=== PATIENT | male | born 1970 | race Caucasian/White ===

== ENCOUNTER 2025-05-07 08:19 | Emergency (ER) | payer OTHER, SELFPAY ==
[2025-05-07 08:27] VITALS: BP 138/79
[2025-05-07] MEDS: TYLENOL 1000 MG PO (08:55)
[2025-05-07 09:01] VITALS: BP 130/87
--- NOTE | 2025-05-07 09:09 | ED.GENMED ---
History of Present Illness
General
Chief Complaint: Chest Pain
Source: patient
Exam Limitations: none
Time Seen by Provider: 05/07/25 08:35
Nursing documentation reviewed up to this point in time: agreed with
History of Present Illness
History of Present Illness:
54 yr old male presents to the ER for evaluation of chest pain. Patient is currently residing at [facility] in [place] and was lifting weights. He was doing a chest press type exercise 2 days ago and since yesterday has had
anterior chest pain. Pain is worse with sneezing or taking a deep breath. He denies any shortness of breath. He has no cardiac history. He does smoke cigarettes. He did take 800 mg of ibuprofen at 7 AM this morning.
Phy Exam
General Physical Exam
General Presentation: no apparent distress
General age: appears stated age
General Skin: warm and dry
General Habitus: normal
General Mental: alert
General Hydration: appears well hydrated
Cardiovascular Exam
Cardiovascular Exam: regular rate/rhythm, no murmur and normal peripheral pulses
Pulmonary Exam
Pulmonary Exam: lungs clear, no respiratory distress and other (+ anterior chest wall tenderness )
Neurological Exam
Neurological Exam: alert and oriented x3
Musculoskeletal Exam
Musculoskeletal Exam: full ROM
Skin Exam
Skin Exam: normal color and warm/dry
Psychiatric Exam
Psychiatric Exam: normal mood/affect
Scores
Heart Score for Chest Pain Patients
STEMI patient?: Not applicable
Course
Orders/Labs/Results
Orders:
Orders
05/07/25
Electrocardiogram (*1) Stat
Comment: DONE
Electrocardiogram (*1) Stat
Comment: DONE
05/07/25 08:48
Complete Blood Count/With Diff Urgent
05/07/25 08:49
Cardiac Monitoring- Treatment ONCE
05/07/25 08:50
Acetaminophen [Tylenol] 1,000 mg PO NOW STA
05/07/25 09:06
Comprehensive Metabolic Panel Urgent
Troponin I Urgent
05/07/25 09:08
Chest [CR Chest - 2 Views ] Urgent
Comment:
Reason For Exam: CP
05/07/25 11:15
Complete Blood Count/With Diff Urgent
Troponin I Urgent
Abnormal Lab Results
05/07/25 05/07/25
09:06 11:15
RBC 4.23 L 10^6/uL
(4.70-6.10)
MCH 32.2 H pg
(27.0-31.0)
Absolute Monos (auto) 1.6 H 10^3/uL
(0.1-0.6)
Monocytes % 15.6 H %
(1.7-9.3)
Carbon Dioxide 31 H mmol/L
(22-30)
Glucose 117 H mg/dl
(70-99)
Total Bilirubin 1.4 H mg/dl
(0.2-1.3)
Total Protein 8.3 H g/dl
(6.3-8.2)
05/07/25 11:15
05/07/25 09:06
Vital Signs
Initial and Last Documented VS:
Initial Vital Signs
Temp Pulse Resp BP Pulse Ox
97.6 F 74 16 138/79 99
05/07/25 08:27 05/07/25 08:27 05/07/25 08:27 05/07/25 08:27 05/07/25 08:27
Last Documented Vital Signs
Temp Pulse Resp BP Pulse Ox
97.6 F 60 17 106/78 98
05/07/25 08:27 05/07/25 11:15 05/07/25 11:15 05/07/25 11:00 05/07/25 11:15
Customer Service Agent consulted with Physician
Customer Service Agent consulted with physician?: Yes
Name of Physician Consulted: liseth
MDM/Problems Addressed
Differential Diagnosis Includes:
Not limited to muscular chest pain, pleurisy less likely ACS
MDM/Problems Addressed:
As documented patient is a 54-year-old male was lifting weights 2 days ago and started yesterday with anterior chest pain worse with sneezing coughing taking a deep breath. He he denies any shortness of breath. He has no cardiac history. He
presents awake alert no acute distress he did take ibuprofen earlier this morning still has some discomfort. On exam he is tender throughout the anterior chest wall, lungs are clear he is not hypoxic nontachypneic. No DVT PE risk factors and he is
not short of breath less likely PE. His cardiac troponins arenegative x2, his EKG is unremarkable for acute findings, positive J-point elevation. No acute findings on chest x-ray. Likely musculoskeletal. Case reviewed ED physician will DC with
ibuprofen and Tylenol however will place on chest pain hotline
Chronic conditions affecting care:
Substance abuse
*Radiology
Radiology exam reviewed: radiology read reviewed
*Pulse Oximetry
SaO2: 99
Oxygen Mode of Delivery: Room air
Patient hypoxic: no
*EKG
Interpreted by ED Provider?: Yes
Heart Rate: 74
Rate: normal
Rhythm: sinus
Ischemia: other (J-point elevation; repeat EKG unchanged)
*Critical Care Note
Total Time (30-74mins, 75-104mins- exclusive of procedures): Not Applicable
ED Attending Note
-
Portions of this chart may have been created with voice recognition software.� Occasional wrong word or��sound alike� substitutions may have occurred due to the inherent limitations of voice recognition software.
Discharge Plan
Departure
Patient Disposition: Home (Routine Discharge)
Date of Disposition: 05/07/25
Time of Disposition: 12:27
Patient with high blood pressure during this ER visit?: No
Condition: Fair
Discharge Problem:
Chest pain
Instructions: Chest Pain DCA Follow Up, BLOOD PRESSURE
Referrals:
NONE,* [Family Provider, Internal Medicine]
Prasanna Lozada, DO [Active, Cardiology]
Activity Restrictions/Additional Instructions:
As discussed symptoms are likely muscular please alternate between ibuprofen and Tylenol. Follow-up with cardiology. You are placed on the cardiology hotline you should be receiving a call in the next several days to be do not please call them to
schedule an appointment for reevaluation return if any worsening of symptoms
Interventions
Interventions:
*Risk Screen - Suicide Last Done: 05/07/25 08:27
*General Assessment Last Done: 05/07/25 08:40
*Neglect/Abuse Screening Last Done: 05/07/25 08:27
*ED- Fall Risk Assessment Last Done: 05/07/25 08:40
*ED COVID-19 Vaccine History Last Done: 05/07/25 08:27
*ED Influenza Vaccine History Last Done: 05/07/25 08:27
ED- Cardiac Assessment Last Done: 05/07/25 08:40
Discharge Date and Time
Print Language: NEPALI
[2025-05-07 09:39] LABS: ALT (SGPT) 21 U/L (0-50); AST (SGOT) 27 U/L (17-59); Albumin 4.8 g/dl (3.5-5.0); Alkaline Phosphatase 71 U/L (38-126); Blood Urea Nitrogen 13 mg/dl (9-20); Calcium 9.6 mg/dl (8.4-10.2); Carbon Dioxide 31 mmol/L (22-30); Chloride 103 mmol/L (98-107); Glucose 117 mg/dl (70-99); Potassium 4.5 mmol/L (3.5-5.1); Sodium 140 mmol/L (135-145); Total Protein 8.3 g/dl (6.3-8.2); eGFR > 60.00
[2025-05-07 09:45] LABS: Troponin I < 0.012 ng/ml
[2025-05-07 10:18] VITALS: BP 108/68
[2025-05-07 11:00] VITALS: BP 106/78
[2025-05-07 11:21] LABS: Hematocrit 39.1 % (39.0-52.0); Hemoglobin 13.6 g/dL (13.0-18.0); Mean Corp Hgb Conc. 34.8 g/dL (33.0-37.0); Mean Corpuscular Volume 92.4 fL (80.0-94.0); Nucleated Red Blood Cells % 0 % (-); Platelet Count 140 10^3/uL (130-400); Red Cell Dist. Width 12.1 % (11.5-14.5)
[2025-05-07 11:46] LABS: Troponin I < 0.012 ng/ml
[2025-05-07 15:17] LABS: Hematocrit 43.5 % (39.0-52.0); Hemoglobin 14.6 g/dL (13.0-18.0); Mean Corp Hgb Conc. 33.6 g/dL (33.0-37.0); Mean Corpuscular Volume 95.6 fL (80.0-94.0); Nucleated Red Blood Cells % 0 % (-); Platelet Count 147 10^3/uL (130-400); Red Cell Dist. Width 12.1 % (11.5-14.5)
== END 2025-05-07 12:39 | disposition home or self-care (01) ==
LOC: EMR 08:19
PROVIDERS: Nurse Practitioner; EMERGENCY PHYSICIAN Student in an Organized Health Care Education/Training Program
DX: R07.89 Other chest pain (principal); F17.210 Nicotine dependence, cigarettes, uncomplicated
CPT/HCPCS: 99283; 71046; 80053; 84484; 85025; 93005